=== PATIENT | female | born 1980 | race African-American/Black ===

== ENCOUNTER 2016-12-21 09:34 | Emergency (ER) | payer MEDICAID ==
[~2016-12-21] VITALS: Ht 167.6 cm; Wt 110.0 kg
[~2016-12-21 09:34] MED LIST: IBUP800T23 PO; ROBA750T3 PO
[2016-12-21 09:36] VITALS: BP 181/109; PULSE 69; RESP 16; TEMP 98.7; O2SAT 99
[2016-12-21] MEDS ORDERED: KETOROLAC TROMETHAMINE 60 MG/2 ML (IM) VIAL IM ONE (10:00)
--- NOTE | 2016-12-21 10:02 | PD ---
HPI . Left knee injury Chief Complaint: Musculoskeletal Complaint Time Seen by Provider: 09:51 Travel History International Travel<30 days: No Contact w/Intl Traveler<30days: No Traveled to known affect area: No History of Present Illness HPI Patient presents with a chief complaint of left knee injury. She states that she tripped and fell and landed on her left knee at about 1:00 in the morning. She has had continuous pain since that time. Pain is rated 10/10. Pain is exacerbated by bending the knee and walking on the knee. Treatment prior to arrival has been "staying off of it." This has provided minimal relief. [facility] Past Medical History Diminished Hearing: No Gastrointestinal Disorders: Yes (GALL STONES) Tetanus Vaccination: < 5 Years Influenza Vaccination: No ?: Not LMP: 12/01/16 : 1 Miscarriage: 1 Past Surgical History Surgical History: No Previous Surgery Social History Alcohol Use: Yes (ONCE/MONTH) Tobacco Use: Yes (LESS THAN 1/2 PPD) Substance Use: Yes (marijuanna) Allergies-Medications (Allergen,Severity, Reaction): Coded Allergies: No Known Allergies (Verified , 02/04/16) Reported Meds & Prescriptions Reported Meds & Active Scripts Active Review of Systems Except as stated in HPI: all other systems reviewed are Neg Musculoskeletal: Positive: Arthralgias Physical Exam Narrative GENERAL: Awake and alert and in no acute distress. SKIN: Warm and dry. Superficial abrasion on the left knee. HEAD: Atraumatic. Normocephalic. EYES: Pupils equal and round. NECK: Trachea midline. CARDIOVASCULAR: Regular rate and rhythm. RESPIRATORY: No accessory muscle use. MUSCULOSKELETAL: No obvious deformities. No edema. Diffuse left knee tenderness. Knee is stable. Distally neurovascularly intact. NEUROLOGICAL: Awake and alert. No obvious cranial nerve deficits. Motor grossly within normal limits. Normal speech. PSYCHIATRIC: Appropriate mood and affect; insight and judgment normal. Data Data Last Documented VS Vital Signs Date Time Temp Pulse Resp B/P Pulse Ox O2 Delivery O2 Flow Rate FiO2 12/21/16 09:36 98.7 69 16 181/109 99 Room Air Orders Knee, Complete (4vws) (12/21/16 09:51) Ketorolac Inj (Toradol Inj) (12/21/16 10:00) MDM Medical Decision Making Medical Screen Exam Complete: Yes Emergency Medical Condition: Yes Differential Diagnosis Differential diagnosis of extremity trauma includes but is not limited to fracture, sprain or strain, dislocation, contusion Narrative Course Patient presents for evaluation and treatment of a left knee injury. I have ordered Toradol for pain. X-ray is pending. Last Impressions Knee X-Ray 12/21/16 0951 Signed Impressions: Service Date/Time: Wednesday, December 21, 2016 10:25 - CONCLUSION: Mild primary degenerative changes. No acute fracture or joint dislocation. Cornelio Esparza MD The x-ray was independently viewed by me. Diagnosis Primary Impression: Contusion of left knee Qualified Code: S80.02XA - Contusion of left knee, initial encounter Patient Instructions: Contusion in Adults (DC), General Instructions, RICE Therapy (ED) Med/Other Pt SpecificInfo: Prescription(s) given Scripts Ibuprofen 800 Mg [id number] Mg PO Q8H PRN (Pain/Inflammation) #60 TAB Ref 0 Prov:Ana Martinez MD 12/21/16 Disposition: 01 DISCHARGE HOME Condition: Stable Ana Martinez MD Dec 21, 2016 10:02
--- NOTE | 2016-12-21 10:45 | RADRPT ---
EXAM DATE/TIME: 12/21/2016 10:25 [facility] COMPARISON: No previous studies available for comparison. INDICATIONS : Left knee pain post fall. MEDICAL HISTORY : None. SURGICAL HISTORY : None. ENCOUNTER: Initial ACUITY: 1 day PAIN SCORE: 10/10 LOCATION: Left Knee FINDINGS: Four view examination of the left knee demonstrates no evidence of fracture or dislocation. There are mild degenerative changes at the knee joint. There is no joint effusion. Bony mineralization is norm al. The articular surfaces are intact. The suprapatellar soft tissues have a normal configuration. CONCLUSION: Mild primary degenerative changes. No acute fracture or joint dislocation. Cornelio Esparza MD on December 21, 2016 at 10:42 Board Certified Radiologist. This report was verified electronically.
[2016-12-21] MEDS ORDERED: IBUP800T23 PO (10:56)
== END 2016-12-21 11:32 | disposition home or self-care (01) ==
LOC: NEPD 09:34
DX: S80.212A Abrasion, left knee, initial encounter (principal); S80.02XA Contusion of left knee, initial encounter; F17.210 Nicotine dependence, cigarettes, uncomplicated; W01.0XXA Fall on same level from slipping, tripping and stumbling without subsequent striking against object, initial encounter
CPT/HCPCS: 73564; 96372; 99284; J1885

== ENCOUNTER 2017-11-09 10:33 | Emergency (ER) | payer MEDICAID ==
[~2017-11-09] VITALS: Ht 165.1 cm; Wt 110.0 kg
[~2017-11-09 10:33] MED LIST changes: +IBUP1TAB7 PO; -IBUP800T23 PO; -ROBA750T3 PO
[2017-11-09 10:41] VITALS: BP 174/86; PULSE 60; RESP 20; TEMP 98; O2SAT 100
--- NOTE | 2017-11-09 11:06 | PD ---
HPI Chief Complaint: Pain: Acute or Chronic Time Seen by Provider: 10:52 Travel History International Travel<30 days: No Contact w/Intl Traveler<30days: No Traveled to known affect area: No History of Present Illness HPI 37-year-old female presents to the emergency department for evaluation of left foot pain and swelling. She states that the swelling will go up to the left calf. Patient states she has been having this issue for 3 years since her son was born. She was on her way to work when she noticed a sharp pain in the swelling worsened. Patient states she has been following with a cutting table operator in her primary care physician. They have been unable to determine a reason for the pain and swelling. She denies any recent injury. Patient states that she has not had an ultrasound to evaluate for blood clot. Patient denies any chance of . She has been taking ibuprofen 800 mg p.o. for the pain. Patient called her primary care physician [facility], but they were unable to get her in today. Palpation of the area and movement will worsen the pain. She states that her primary care physician told her that it could be gout. She states she recently had lab work which did not show any acute abnormality. She sees the cutting table operator again next week. No chest pain or shortness of breath. Patient states she has had multiple x-rays done in the past showed no acute abnormality. Mild severity. PFSH Past Medical History Medical History: Denies Significant Hx Diminished Hearing: No Gastrointestinal Disorders: Yes (GALL STONES) Tetanus Vaccination: < 5 Years ?: Not LMP: 10/2017 : 1 Miscarriage: 1 Past Surgical History Surgical History: No Previous Surgery Social History Alcohol Use: Yes (ONCE/MONTH) Tobacco Use: Yes (LESS THAN 1/2 PPD) Substance Use: Yes (marijuanna) Allergies-Medications (Allergen,Severity, Reaction): Coded Allergies: No Known Allergies (Verified Adverse Reaction, Unknown, 11/09/17) Reported Meds & Prescriptions Reported Meds & Active Scripts Active Prednisone 20 Mg Tab 40 Mg PO DAILY Take 40 mg (2 tablets) daily for 5 days Ibuprofen 800 Mg Tab 800 Mg PO Q8H PRN Review of Systems Except as stated in HPI: all other systems reviewed are Neg Physical Exam Narrative GENERAL: Well-nourished, well-developed female patient, afebrile. SKIN: Focused skin assessment warm/dry. No erythema or warmth. HEAD: Normocephalic. Atraumatic. EYES: No scleral icterus. No injection or drainage. NECK: Supple, trachea midline. No JVD or lymphadenopathy. CARDIOVASCULAR: Regular rate and rhythm without murmurs, gallops, or rubs. Left pedal pulse 2+. RESPIRATORY: Breath sounds equal bilaterally. No accessory muscle use. Lung sounds are clear to auscultation. GASTROINTESTINAL: Abdomen soft, non-tender, nondistended. MUSCULOSKELETAL: No cyanosis. Left foot is swollen. She is mild swelling of the left calf. She has tenderness over the left dorsal foot. No evidence of cellulitis or infection. BACK: Nontender without obvious deformity. No CVA tenderness. Data Data Last Documented VS Vital Signs Date Time Temp Pulse Resp B/P (MAP) Pulse Ox O2 Delivery O2 Flow Rate FiO2 11/09/17 10:41 98.0 60 20 174/86 (115) 100 Orders Orders Us Leg Venous Doppler (11/09/17 ) Ketorolac Inj (Toradol Inj) (11/09/17 11:15) Dexamethasone Inj (Decadron Inj) (11/09/17 11:15) Splint Or Brace Apply/Monitor (11/09/17 12:37) Crutches (11/09/17 12:37) Ed Discharge Order (11/09/17 12:37) MDM Medical Decision Making Medical Screen Exam Complete: Yes Emergency Medical Condition: Yes Medical Record Reviewed: Yes Interpretation(s) Last Impressions Lower Extremity Ultrasound 11/09/17 0000 Impressions: CONCLUSION: 1. No evidence of DVT. Differential Diagnosis Chronic foot pain versus gouty arthritis versus DVT versus osteoarthritis Narrative Course 37-year-old female presents to the emergency department for evaluation of left foot pain and swelling with some mild swelling of the left calf. No tenderness to palpation of left posterior calf. She has had workup in the past, but has not had an ultrasound completed. Venous Doppler ultrasound of the left lower extremity is ordered and pending. Patient is given Toradol 60 mg IM, dexamethasone 8 mg IM. US negative for DVT should not for prednisone. She will be given Shiva wrap and crutches. The patient was discharged in stable condition with instructions, including return instructions and follow up instructions. Diagnosis Primary Impression: Left foot pain Referrals: Primary Care Physician call for appointment Patient Instructions: Foot Sprain (ED), General Instructions, Gout (ED) Departure Forms: Tests/Procedures, Work Release Enter return to work date: November 11, 2017 Additional Instructions: Continue ibuprofen as directed as needed with food for pain. Take prednisone as directed. Start this tomorrow. Ice for 20 minutes 4-5 times daily. Wear Shiva bandage and use crutches as needed for support. Follow-up with your primary care physician and cutting table operator. Return to the emergency department for any acute worsening of symptoms. Med/Other Pt SpecificInfo: Prescription(s) given Scripts Prednisone (Prednisone) 20 Mg Tab 40 MG PO DAILY, #10 TAB 0 Refills Take 40 mg (2 tablets) daily for 5 days Prov: Lesia Bowie 11/09/17 Disposition: 01 DISCHARGE HOME Condition: Stable Lesia Bowie November 09, 2017 11:06
[2017-11-09] MEDS ORDERED: DEXAMETHASONE SOD PHOS 4 MG/ML VIAL IM ONE (11:15)
[2017-11-09] MEDS ORDERED: KETOROLAC TROMETHAMINE 60 MG/2 ML (IM) VIAL IM ONE (11:15)
--- NOTE | 2017-11-09 12:33 | RADRPT ---
EXAM DATE: 11/09/2017 12:01 PM EDT AGE/SEX: 37 years / Female INDICATIONS: Left leg swelling. CLINICAL DATA: This is the patient's initial encounter. Patient reports that signs and symptoms have been present for > 1 year and indicates a pain score of 10/10. MEDICAL/SURGICAL HISTORY: Cholelithasis. None. COMPARISON: No prior exams available for comparison. TECHNIQUE: Venous ultrasound of both lower extremities was performed from the inguinal ligament to t he proximal calf. Real-time, color Doppler and spectral tracing, compression and augmentation techni ques were used. FINDINGS: There is normal compressibility of the deep venous system from the inguinal region to the proximal ca lf. No echogenic clot is seen in the lumen of the common femoral, femoral, popliteal, and posterior tibial veins. There is a normal response of the venous system to proximal and distal augmentation an d respiration. CONCLUSION: 1. No evidence of DVT. Electronically signed by: Cornelio Esparza MD 11/09/2017 12:32 PM EDT
[2017-11-09] MEDS ORDERED: PRED20 PO (12:35)
== END 2017-11-09 13:03 | disposition home or self-care (01) ==
LOC: NEPK 10:33
DX: M79.672 Pain in left foot (principal); F17.210 Nicotine dependence, cigarettes, uncomplicated
CPT/HCPCS: 93971; 96372; 99284; E0113; J1100; J1885